=== PATIENT | female | born 1935 | race African-American/Black ===

== ENCOUNTER 2024-08-12 15:27 | Emergency (ER) | payer OTHER, MEDICAID ==
[~2024-08-12] VITALS: Ht 167.6 cm; Wt 64.0 kg
[~2024-08-12 15:27] MED LIST: AMLO10TA80 PO; ASPI-1406 PO; CLOP-31 PO; DOCU-422 PO; FAMO20TA8 PO; HYDR50TA39 PO; LISI10TA26 PO; MAXOS EACHEYE; TOPUD PO
[2024-08-12 15:32] VITALS: O2SAT 98
[2024-08-12 16:47] LABS: CHLORIDE 102 mEq/L (98-107); POTASSIUM 4.4 mEq/L (3.5-5.1); SODIUM 139 mEq/L (136-145)
[2024-08-12 16:48] LABS: CALCIUM 9.2 mg/dL (8.7-10.4); CARBON DIOXIDE 26 mEq/L (21-32)
[2024-08-12 16:53] LABS: GLUCOSE 107 mg/dL (70-105); UREA NITROGEN BLOOD 17 mg/dL (9-23)
[2024-08-12 16:55] LABS: CREATINE KINASE 86 IU/L (34-145)
[2024-08-12 17:12] LABS: CREATININE 4.4 mg/dL (0.6-1.0); TROPONIN I HIGH SENSITIVITY 325 ng/L (3.0-34)
[2024-08-12 17:51] LABS: EOSINOPHILS % 1.9 % (0.0-5.0); HEMATOCRIT. 32.7 % (36.0-48.0); HEMOGLOBIN. 10.4 g/dL (12.0-16.0); LYMPHOCYTES % 23.2 % (20.0-50.0); MEAN CORPUSCULAR HEMOGLOBIN 28.2 pg (28.0-32.0); MEAN CORPUSCULAR HGB CONC 31.8 g/dL (31.0-37.0); MEAN CORPUSCULAR VOLUME 88.7 fL (81.0-99.0); MONOCYTES % 12.6 % (2.0-8.0); NEUTROPHILS % 61.3 % (40.0-76.0); PLATELET 206 x1000/uL (130-400); RED BLOOD CELL COUNT 3.68 mill/uL (4.2-5.4); RED CELL DISTRIBUTION WIDTH 18.5 % (11.6-14.6); WHITE BLOOD COUNT 3.4 x1000/uL (4.5-11.0)
[2024-08-12 20:43] VITALS: BP 164/69; PULSE 71; RESP 18; TEMP 36.8; O2SAT 97
== END 2024-08-12 20:50 | disposition short-term general hospital (02) ==
LOC: ER 15:27
DX: R53.1 Weakness (principal); I12.0 Hypertensive chronic kidney disease with stage 5 chronic kidney disease or end stage renal disease; N18.6 End stage renal disease; Z79.02 Long term (current) use of antithrombotics/antiplatelets; Z79.82 Long term (current) use of aspirin; Z79.899 Other long term (current) drug therapy; Z99.2 Dependence on renal dialysis
CPT/HCPCS: 36415; 71045; 80048; 82550; 84484; 85025; 99285

== ENCOUNTER 2024-12-19 18:14 | Emergency (ER) | payer OTHER, MEDICAID ==
[~2024-12-19] VITALS: Ht 162.6 cm; Wt 70.0 kg
[2024-12-19 18:15] VITALS: TEMP 37.2; O2SAT 100
[2024-12-19 19:04] LABS: BASOPHILS % 1.2 % (0.0-2.0); EOSINOPHILS % 2.4 % (0.0-5.0); HEMATOCRIT. 39.5 % (36.0-48.0); HEMOGLOBIN. 12.2 g/dL (12.0-16.0); LYMPHOCYTES % 33.5 % (20.0-50.0); MEAN PLATELET VOLUME 8.2 fl (7.4-10.4); MONOCYTES % 10.1 % (2.0-8.0); NEUTROPHILS % 52.8 % (40.0-76.0); PLATELET 252 x1000/uL (130-400); RED BLOOD CELL COUNT 4.46 mill/uL (4.2-5.4); RED CELL DISTRIBUTION WIDTH 17.6 % (11.6-14.6)
[2024-12-19 19:26] LABS: INR 1.1
[2024-12-19 20:06] LABS: UREA NITROGEN BLOOD 28 mg/dL (9-23)
[2024-12-19 20:34] LABS: CREATININE 5.5 mg/dL (0.6-1.0); TROPONIN I HIGH SENSITIVITY 206 ng/L (3.0-34)
[2024-12-19] MEDS ORDERED: GUAIFENESIN/CODEINE 200-20MG/10ML UDC PO SCH (22:30)
[2024-12-19] MEDS: GUAIFENESIN/CODEINE 200-20MG/10ML UDC PO ONE (22:56)
[2024-12-19 23:48] LABS: TROPONIN I HIGH SENSITIVITY 207 ng/L (3.0-34)
[2024-12-20] MEDS ORDERED: HYDRALAZINE HCL 100MG TABLET PO ONE
[2024-12-20] MEDS: HYDRALAZINE 20MG/ML VIAL IV ONE (00:18)
[2024-12-20] MEDS ORDERED: ONDANSETRON HCL 4MG/2ML INJ IV STA (00:57)
[2024-12-20] MEDS ORDERED: MORPHINE SULFATE 4 MG/ML INJ (FOR IV/IM USE) IV STA (00:57)
[2024-12-20] MEDS ORDERED: NITROGLYCERIN 0.4MG TABLET SL SL ONE (01:00)
[2024-12-20] MEDS ORDERED: ASPIRIN 81MG TABLET PO ONE (01:00)
[2024-12-20] MEDS ORDERED: NITROGLYCERIN 0.4MG TABLET SL SL NR (02:00)
[2024-12-20] MEDS ORDERED: ASPIRIN 81MG TABLET PO NR (02:00)
[2024-12-20] MEDS ORDERED: ONDANSETRON HCL 4MG/2ML INJ IV NR (02:00)
[2024-12-20 02:17] VITALS: BP 165/84; PULSE 71; RESP 19; O2SAT 97
== END 2024-12-20 02:20 | disposition admitted as inpatient to this hospital (09) ==
LOC: ER 18:14
DX: E87.70 Fluid overload, unspecified (principal); I20.0 Unstable angina; I12.0 Hypertensive chronic kidney disease with stage 5 chronic kidney disease or end stage renal disease; E11.22 Type 2 diabetes mellitus with diabetic chronic kidney disease; N18.6 End stage renal disease; Z79.899 Other long term (current) drug therapy; Z79.82 Long term (current) use of aspirin
CPT/HCPCS: 99291; 80048; 83880; 85025; 85610; 84484; 71045; 93005; 96374; 36415; J0360